=== PATIENT | male | born 1945 | race Caucasian/White ===

== ENCOUNTER 2020-05-27 14:47 | Emergency (ER) | payer MEDICARE ==
[2020-05-27] MEDS ORDERED: Acetaminophen 500 MG TAB ONE (15:39)
== END 2020-05-27 17:49 ==
LOC: ERS 14:47
DX: S30.0XXA Contusion of lower back and pelvis, initial encounter (principal); M50.31 Other cervical disc degeneration, high cervical region; F03.90 Unspecified dementia, unspecified severity, without behavioral disturbance, psychotic disturbance, mood disturbance, and anxiety; I10 Essential (primary) hypertension; G20 Parkinson's disease; Z79.899 Other long term (current) drug therapy; W18.30XA Fall on same level, unspecified, initial encounter; F17.200 Nicotine dependence, unspecified, uncomplicated
CPT/HCPCS: 36416; 70450; 72125; 72131; 72170; 93005

== ENCOUNTER 2020-08-13 12:48 | Emergency (ER) | payer MEDICARE ==
[2020-08-13 13:16] LABS: #Eosinphils 0.1 thou/uL (0.0-0.7); #Lymphocytes 1.2 thou/uL (1.20-3.40); #Monocytes 0.8 thou/uL (0.11-0.59); #Neutrophils 7.7 thou/uL (1.40-6.50); %Basophils 0.3 % (0.0-1.0); %Monocytes 8.2 % (0.0-10.0); %Neutrophils 78.5 % (42.0-75.0); Hemoglobin 12.7 g/dL (14.0-18.0); Mean Corpuscular HGB CONC 34.8 g/dL (32.0-36.0); Mean Corpuscular Hemoglobin 31.4 pg (27.0-31.0); Mean Corpuscular Volume 90.2 fL (78.0-98.0); Mean Platelet Volume 6.8 fL (7.4-10.4); Platelet Count 157 thou/uL (130-400); Red Blood Cell (RBC) Count 4.03 mill/uL (4.70-6.10); White Blood Cell (WBC) Count 9.9 thou/uL (4.8-10.8)
[2020-08-13 13:38] LABS: ALT (SGPT) Less than 7 U/L (8-55); AST (SGOT) 8 U/L (5-34); Albumin 3.4 g/dL (3.4-4.8); Alkaline Phosphatase 71 U/L (40-110); Anion Gap 10 mmol/L (10-20); BUN (Urea Nitrogen) 10 mg/dL (8.4-25.7); Bilirubin, Total 0.7 mg/dL (0.2-1.2); Calc. Creatinine Clearance 0 mL/min (70-130); Calcium 8.2 mg/dL (7.8-10.44); Carbon Dioxide 27 mmol/L (23-31); Chloride 104 mmol/L (98-107); Globulin 2.6 g/dL (2.4-3.5); Glucose 125 mg/dL (83-110); Potassium 3.7 mmol/L (3.5-5.1); Sodium 137 mmol/L (136-145)
== END 2020-08-13 14:40 | disposition home or self-care (01) ==
LOC: ERS 12:48
DX: R07.89 Other chest pain (principal); G20 Parkinson's disease; F02.80 Dementia in other diseases classified elsewhere, unspecified severity, without behavioral disturbance, psychotic disturbance, mood disturbance, and anxiety; I10 Essential (primary) hypertension; N40.0 Benign prostatic hyperplasia without lower urinary tract symptoms; Z79.899 Other long term (current) drug therapy
CPT/HCPCS: 36415; 71045; 80053; 84484; 85025; 93005

== ENCOUNTER 2020-08-25 18:11 | Emergency (ER) | payer MEDICARE ==
[2020-08-25 19:49] LABS: Clarity Turbid (Clear)
[2020-08-25 19:52] LABS: Specific Gravity, Urine 1.027 (1.002-1.036)
[2020-08-25 19:53] LABS: Bilirubin Unable to Interpret (Negative); Blood, Urine Unable to Interpret (Negative); Glucose, Urine (Dipstick) Unable to Interpret mg/dL (Negative); Ketone, Urine Unable to Interpret mg/dL (Negative); Leukocyte Unable to Interpret (Negative); Nitrite Unable to Interpret (Negative); Protein, Urine (Dipstick) Unable to Interpret mg/dL (Neg-Trace); Urobilinogen UNABLE TO INTERPRET mg/dL (Less than 2)
[2020-08-25 19:55] LABS: RBC/HPF Greater than 50 HPF (0-3)
[2020-08-25 19:56] LABS: Squamous Epithelial 0-3 HPF (0-3)
== END 2020-08-25 21:30 ==
LOC: ERS 18:11
DX: Z46.6 Encounter for fitting and adjustment of urinary device (principal); G47.33 Obstructive sleep apnea (adult) (pediatric); I10 Essential (primary) hypertension; G62.9 Polyneuropathy, unspecified; J45.909 Unspecified asthma, uncomplicated; M47.9 Spondylosis, unspecified; N40.0 Benign prostatic hyperplasia without lower urinary tract symptoms; Z79.899 Other long term (current) drug therapy; Z79.891 Long term (current) use of opiate analgesic
CPT/HCPCS: 51702; 81003; 81015

== ENCOUNTER 2022-12-21 14:54 | Emergency (ER) | payer MEDICARE, MEDICAID ==
[2022-12-21] MEDS ORDERED: Acetaminophen 500 MG TAB ONE (15:19)
== END 2022-12-21 18:30 | disposition home or self-care (01) ==
LOC: ERS 14:54
DX: S00.91XA Abrasion of unspecified part of head, initial encounter (principal); M25.552 Pain in left hip; I10 Essential (primary) hypertension; F17.200 Nicotine dependence, unspecified, uncomplicated; G62.9 Polyneuropathy, unspecified; G20.A1 Parkinson's disease without dyskinesia, without mention of fluctuations; F02.80 Dementia in other diseases classified elsewhere, unspecified severity, without behavioral disturbance, psychotic disturbance, mood disturbance, and anxiety; W05.0XXA Fall from non-moving wheelchair, initial encounter; Y92.129 Unspecified place in nursing home as the place of occurrence of the external cause
CPT/HCPCS: 72170

== ENCOUNTER 2023-08-01 14:05 | Inpatient (IN) | payer MEDICARE, MEDICAID ==
[~2023-08-01 14:05] MED LIST: Iopamidol-370 76% 500 ML MDV (1 ML CHARGE) ONE
[2023-08-01] MEDS ORDERED: fentaNYL 50 mcg/mL 1 mL Vial ONE (14:27)
[2023-08-01 14:52] LABS: #Basophils 0.05 10x3/uL (0.0-0.2); %Basophils 0.5 % (0.0-1.0); %Eosinophils 3.5 % (0.0-10.0); %Lymphocytes 21.1 % (21.0-51.0); %Neutrophils 65.6 % (42.0-75.0); Hematocrit 40.4 % (42.0-52.0); Hemoglobin 13.6 g/dL (14.0-18.0); Mean Corpuscular HGB CONC 33.7 g/dL (32.0-36.0); Mean Corpuscular Hemoglobin 31.3 pg (27.0-31.0); Mean Corpuscular Volume 92.9 fL (78.0-98.0); Mean Platelet Volume 10.3 fL (7.4-10.4); Platelet Count 146 10x3/uL (130-400); RBC Distribution Width 13.3 % (11.5-14.5); Red Blood Cell (RBC) Count 4.35 mill/uL (4.70-6.10)
[2023-08-01 15:14] LABS: ALT (SGPT) Less than 5 U/L (8-55); AST (SGOT) 11 U/L (5-34); Albumin 3.5 g/dL (3.4-4.8); Alkaline Phosphatase 66 U/L (40-110); Anion Gap 14 mmol/L (10-20); BUN (Urea Nitrogen) 16 mg/dL (8.4-25.7); Bilirubin, Total 0.8 mg/dL (0.2-1.2); Calc. Creatinine Clearance 0 mL/min (70-130); Carbon Dioxide 24 mmol/L (23-31); Chloride 108 mmol/L (98-107); Estimated GFR 91; Globulin 2.8 g/dL (2.4-3.5); Glucose 97 mg/dL (83-110); Potassium 4.2 mmol/L (3.5-5.1); Protein, Total 6.3 g/dL (5.8-8.1); Sodium 142 mmol/L (136-145)
[2023-08-01 15:17] LABS: Troponin I Less than 0.010 ng/mL (< 0.028)
[2023-08-01] MEDS ORDERED: Ondansetron ODT 4 MG TAB PO PRN (16:01)
[2023-08-01] MEDS ORDERED: Nitroglycerin 0.4 MG TAB (25 Tab Bottle) SL PRN (16:01)
[2023-08-01] MEDS ORDERED: Senokot S 8.6-50 MG TAB PO PRN (16:01)
[2023-08-01 19:11] LABS: Troponin I Less than 0.010 ng/mL (< 0.028)
[2023-08-01 20:40] LABS: Troponin I Less than 0.010 ng/mL (< 0.028)
[2023-08-01] MEDS: Sodium Chloride 0.9% 1,000 ML IV SCH (23:00)
[2023-08-01] MEDS: Aspirin Chewable 81 MG TAB PO SCH (23:00)
[2023-08-01] MEDS: Famotidine 20 MG TAB PO SCH (23:00)
[2023-08-01] MEDS: Acetaminophen 325 MG TAB PO SCH (23:01)
[2023-08-02 00:49] VITALS: BMI 21.7
[2023-08-02 05:07] LABS: Cardiac Risk 3.6 (Less than 4.5)
[2023-08-02] MEDS: Cyanocobalamin (Vitamin B-12) 1,000 MCG TAB PO SCH (09:54)
[2023-08-02] MEDS: Tamsulosin HCl 0.4 MG CAP PO SCH (09:54)
[2023-08-02] MEDS: Sertraline 100 MG TAB PO SCH (09:54)
[2023-08-02] MEDS: Divalproex Sodium 250 MG ER.TAB PO SCH (09:54)
[2023-08-02] MEDS: Aspirin Chewable 81 MG TAB PO SCH (09:55)
[2023-08-02] MEDS: Enoxaparin 40 MG (0.4 mL) SYRINGE SC SCH (09:55)
[2023-08-02] MEDS: busPIRone HCl 5 MG TAB PO SCH (09:55)
[2023-08-02] MEDS: Carbidopa/Levodopa CR 50-200 mg Tablet PO SCH (09:55)
[2023-08-02 10:26] VITALS: BMI 21.7
[2023-08-02] MEDS: QUEtiapine 25 MG TAB PO SCH (20:58)
[2023-08-03 04:58] LABS: Hemoglobin 13.6 g/dL (14.0-18.0); Mean Corpuscular Volume 91.1 fL (78.0-98.0); Mean Platelet Volume 10.2 fL (7.4-10.4); Platelet Count 130 10x3/uL (130-400); RBC Distribution Width 13.2 % (11.5-14.5); Red Blood Cell (RBC) Count 4.39 mill/uL (4.70-6.10)
[2023-08-03 05:09] LABS: Anion Gap 13 mmol/L (10-20); BUN (Urea Nitrogen) 16 mg/dL (8.4-25.7); Calc. Creatinine Clearance 66 mL/min (70-130); Calcium 9.1 mg/dL (7.8-10.44); Carbon Dioxide 23 mmol/L (23-31); Chloride 105 mmol/L (98-107); Estimated GFR 90; Glucose 87 mg/dL (83-110); Potassium 3.8 mmol/L (3.5-5.1); Sodium 137 mmol/L (136-145)
[2023-08-03] MEDS ORDERED: Regadenoson 0.4 MG/5 ML SYRINGE ONE (12:10)
[2023-08-03 15:41] VITALS: BP 131/59; TEMP 97.7
== END 2023-08-03 18:24 | DRG 313 ==
LOC: ERS 14:05 → ERHOLD 15:56 → 2NO 18:54 → OBSVTOIN 08-02 16:03
PROVIDERS: ADMIT Internal Medicine; ATTEND Internal Medicine
DX: R07.9 Chest pain, unspecified (principal); I69.354 Hemiplegia and hemiparesis following cerebral infarction affecting left non-dominant side; F02.84 Dementia in other diseases classified elsewhere, unspecified severity, with anxiety; F02.83 Dementia in other diseases classified elsewhere, unspecified severity, with mood disturbance; G20.A1 Parkinson's disease without dyskinesia, without mention of fluctuations; N40.0 Benign prostatic hyperplasia without lower urinary tract symptoms; I10 Essential (primary) hypertension; J45.909 Unspecified asthma, uncomplicated; Z87.440 Personal history of urinary (tract) infections; Z91.048 Other nonmedicinal substance allergy status
CPT/HCPCS: 36415; 71045; 71275; 74174; 78452; 80048; 80053; 80061; 84484; 85025; 85027; 93005; 93017; 93306; 96372; 96374; A9502; G0378; J1650; J2785; J3010; Q9967

== ENCOUNTER 2024-09-19 13:43 | Emergency (ER) | payer MEDICARE, MEDICAID | END 2024-09-19 17:30 | disposition home or self-care (01) | LOC: ERS 13:43 | DX: S70.02XA Contusion of left hip, initial encounter (principal); G20.A1 Parkinson's disease without dyskinesia, without mention of fluctuations; I10 Essential (primary) hypertension; F17.200 Nicotine dependence, unspecified, uncomplicated; W01.10XA Fall on same level from slipping, tripping and stumbling with subsequent striking against unspecified object, initial encounter | CPT/HCPCS: 70450; 72125 ==

== ENCOUNTER 2025-02-04 19:21 | Emergency (ER) | payer MEDICARE, MEDICAID ==
[2025-02-04 21:27] LABS: #Basophils 0.05 10x3/uL (0.0-0.2); #Eosinophils 0.18 10x3/uL (0.0-0.7); #Monocytes 0.61 10x3/uL (0.11-0.59); #Neutrophils 4.12 10x3/uL (1.40-6.50); %Basophils 0.7 % (0.0-1.0); %Eosinophils 2.6 % (0.0-10.0); %Lymphocytes 28.4 % (21.0-51.0); %Monocytes 8.8 % (0.0-10.0); %Neutrophils 59.1 % (42.0-75.0); Hematocrit 37.7 % (42.0-52.0); Hemoglobin 12.7 g/dL (14.0-18.0); Mean Corpuscular Hemoglobin 31.4 pg (27.0-31.0); Mean Corpuscular Volume 93.1 fL (78.0-98.0); Platelet Count 133 10x3/uL (130-400); Red Blood Cell (RBC) Count 4.05 mill/uL (4.70-6.10); White Blood Cell (WBC) Count 6.97 10x3/uL (4.8-10.8)
[2025-02-04 21:32] LABS: ALT (SGPT) Less than 7 U/L (Less than 45); AST (SGOT) 16 U/L (11-34); Albumin 3.5 g/dL (3.1-4.5); Alkaline Phosphatase 59 U/L (40-110); Anion Gap 12 mmol/L (10-20); BUN (Urea Nitrogen) 25 mg/dL (8.4-25.7); Bilirubin, Total 0.4 mg/dL (0.3-1.2); Calc. Creatinine Clearance 0 mL/min (70-130); Calcium 9.1 mg/dL (7.8-10.44); Carbon Dioxide 24 mmol/L (23-31); Chloride 108 mmol/L (98-107); Globulin 2.8 g/dL (2.4-3.5); Glucose 107 mg/dL (83-110); Potassium 3.9 mmol/L (3.5-5.1); Sodium 140 mmol/L (136-145)
== END 2025-02-04 23:20 ==
LOC: ERS 19:21
DX: S00.03XA Contusion of scalp, initial encounter (principal); S60.511A Abrasion of right hand, initial encounter; F03.90 Unspecified dementia, unspecified severity, without behavioral disturbance, psychotic disturbance, mood disturbance, and anxiety; W18.30XA Fall on same level, unspecified, initial encounter
CPT/HCPCS: 70450; 71045; 72125; 72170; 80053; 85025; 90471; 90715; 93005